=== PATIENT | female | born 1995 | race Caucasian/White ===

== ENCOUNTER 2025-03-21 15:39 | Emergency (ER) | payer BC, SELFPAY ==
[2025-03-21 15:43] VITALS: BP 121/72
[2025-03-21 16:06] LABS: % Basophils 0.2 % (0-2); % Eosinophils 0.7 % (0-6); % Immature Granulocytes 0.4 % (0-0.5); % Lymphocytes 8.2 % (20.5-51.1); % Monocytes 3.8 % (1.7-9.3); % Neutrophils 86.7 % (42.2-75.2); Absolute Eosinophils 0.1 10^3/uL (0-0.7); Absolute Lymphocytes 0.7 10^3/uL (1.2-3.4); Absolute Monocytes 0.3 10^3/uL (0.1-0.6); Absolute Neutrophils 7.2 10^3/uL (1.4-6.5); Hemoglobin 14.2 g/dL (12.0-16.0); Mean Corp Hgb Conc. 35.5 g/dL (33.0-37.0); Mean Corpuscular Volume 84.6 fL (81.0-99.0); Mean Platelet Volume 10.4 fL (7.4-10.4); Nucleated Red Blood Cells % 0 %; Platelet Count 268 10^3/uL (130-400); Red Blood Cell Count 4.73 10^6/uL (4.20-5.40); Red Cell Dist. Width 12.8 % (11.5-14.5); White Blood Cell Count 8.3 10^3/uL (4.8-10.8)
[2025-03-21 16:08] LABS: Urine Albumin Negative (Neg - Trace); Urine Bilirubin Negative (Negative); Urine Character Clear (Clear); Urine Color Yellow; Urine Glucose Negative (Negative); Urine Ketone Negative (Negative); Urine Leukocyte Negative (Negative); Urine Nitrite Negative (Negative); Urine Occult Blood 1+ (Negative); Urine Urobilinogen Negative (Neg - 1+)
[2025-03-21 16:19] LABS: HCG, Serum Qualitative Screen Negative; Urine Bacteria Few (Negative); Urine Red Blood Cell 0-2 /HPF (0-2); Urine Squamous Cell >30 /LPF (Few); Urine White Cell 0-2 /HPF (0-5)
[2025-03-21 16:24] LABS: ALT (SGPT) 29 U/L (0-35); AST (SGOT) 26 U/L (14-36); Albumin 4.6 g/dl (3.5-5.0); Alkaline Phosphatase 47 U/L (38-126); Blood Urea Nitrogen 13 mg/dl (7-17); Calcium 9.5 mg/dl (8.4-10.2); Carbon Dioxide 26 mmol/L (22-30); Chloride 103 mmol/L (98-107); Glucose 112 mg/dl (70-99); Potassium 3.8 mmol/L (3.5-5.1); Sodium 138 mmol/L (135-145); Total Bilirubin 0.9 mg/dl (0.2-1.3); Total Protein 7.5 g/dl (6.3-8.2); eGFR > 60.00
[2025-03-21 16:51] VITALS: BMI 29.6
--- NOTE | 2025-03-21 17:39 | ED.GENMED ---
History of Present Illness
General
Chief Complaint: Back Pain
Source: patient
Exam Limitations: none
Time Seen by Provider: 03/21/25 17:20
History of Present Illness
History of Present Illness:
Patient complaining of bilateral low back pain that started vaguely yesterday afternoon while sitting. No sudden pain no flank pain associated with some nausea. Mild diarrhea. No abdominal pain no fever no urinary symptoms. Only took Tylenol
last evening for this. She is breast-feeding.
Past History
Past History
ED Past Medical History: Other (Frequent UTI)
ED Past Surgical History: (6 months ago)
Review of Systems
Review of Systems
All Other Systems: Not applicable
Constitutional: Denies fever or chills
Respiratory: Denies cough
Cardiac: Reports no symptoms
ABD/GI: Denies abdominal pain
Phy Exam
Physical Exam
Physical Exam:
GENERAL: Alert and oriented in no apparent distress. Initially in a recliner. Seemed mildly uncomfortable with the active sitting up. Clinically appeared musculoskeletal. Able to ambulate.
EYE: Orbits normal.
NECK: Supple
CARDIAC: Regular rate and rhythm without any obvious murmurs.
LUNGS: Clear breath sounds,normal
ABDOMEN: Soft, without focal tenderness or distention. No CVA tenderness
NEUROLOGICAL: Alert and oriented , grossly non-focal. Good lower extremity strength. Patellar reflexes intact. Gait normal
SKIN: Warm and dry, no rash or lesion, no discoloration, skin intact.
MUSCULOSKELETAL: No edema,no deformity.Good color. Decreased flexion at the hip and pain with flexion. No pain with straight leg raising.
PSYCH: Normal and appropriate interaction.
Course
Orders/Labs/Results
Orders:
Orders
03/21/25 15:48
Test Result ONCE
03/21/25 15:58
Complete Blood Count/With Diff Urgent
Comprehensive Metabolic Panel Urgent
HCG, Serum Qualitative Screen Urgent
Urinalysis Reflex To Culture Urgent
Date Specimen was Collected: 03/21/25
Time Specimen was Collected: 15:53
Urine Microscopic Reflex Cult Urgent
03/21/25 17:31
0.9% Sodium Chloride 1000 ml [Nss] 1,000 ml IV BOLUS
Ketorolac [Toradol] 15 mg IV NOW STA
03/21/25 17:34
CT Abd/pel Without Iv Or Oral Urgent
Comment:
Reason For Exam: Back pain nausea vomiting
03/21/25 20:49
Vital Signs- Treatment ONCE
Frequency: Once
Comment: now
Vital Signs As Directed
Frequency: Other
Additional Instructions:: Repeat vital signs now
Abnormal Lab Results
03/21/25
15:58
Absolute Neuts (auto) 7.2 H 10^3/uL
(1.4-6.5)
Absolute Lymphs (auto) 0.7 L 10^3/uL
(1.2-3.4)
Neutrophils % 86.7 H %
(42.2-75.2)
Lymphocytes % 8.2 L %
(20.5-51.1)
Creatinine 0.5 L mg/dL
(0.6-1.0)
Glucose 112 H mg/dl
(70-99)
Ur Occult Blood Reflex 1+ A
(Negative)
Urine Bacteria (Reflex) Few A
(Negative)
03/21/25 15:58
03/21/25 15:58
Vital Signs
Initial and Last Documented VS:
Initial Vital Signs
Temp Pulse Resp BP Pulse Ox
98.4 F 118 16 121/72 98
03/21/25 15:43 03/21/25 15:43 03/21/25 15:43 03/21/25 15:43 03/21/25 15:43
Last Documented Vital Signs
Temp Pulse Resp BP Pulse Ox
98.4 F 102 18 118/73 98
03/21/25 15:43 03/21/25 20:54 03/21/25 20:54 03/21/25 20:54 03/21/25 20:54
MDM/Problems Addressed
Differential Diagnosis Includes:
Patient clinically appears musculoskeletal. Bilateral low back. No acute neurologic symptoms. No abdominal symptoms. No CVA tenderness. Patient had some transient shortness of breath but admitted she was anxious during this episode. Shortness
of breath is resolved. It is not a pleuritic or upper back pain or chest pain. Feel pulmonary emboli is very unlikely. I will get a CT scan to evaluate for kidney stone. Toradol reviewed and appears safe during breast-feeding. Patient's child
is 6 months old.
*Radiology
Radiology exam reviewed: radiology read reviewed (Negative)
*Pulse Oximetry
Patient hypoxic: no
*Critical Care Note
Total Time (30-74mins, 75-104mins- exclusive of procedures): Not Applicable
Update Note
Update Note:
No serious etiology found for patient's symptoms. Clinically very musculoskeletal in nature. Although she is having some diarrhea. May be an underlying viral syndrome. Symptomatic treatment and follow-up
ED Attending Note
-
Portions of this chart may have been created with voice recognition software.� Occasional wrong word or��sound alike� substitutions may have occurred due to the inherent limitations of voice recognition software.
Discharge Plan
Departure
Patient Disposition: Home (Routine Discharge)
Date of Disposition: 03/21/25
Time of Disposition: 21:10
Patient with high blood pressure during this ER visit?: No
Discharge Problem:
Low back pain/diarrhea
Instructions: Low Back Pain (DC), Acute Diarrhea
Prescriptions:
No Action
sennosides-docusate sodium [Senna Plus] 8.6-50 mg Tablet
1 tab PO DAILYPRN PRN (Reason: constipation) Qty: 10 0RF
ibuprofen 600 mg Tablet
600 mg PO Q6HPRN PRN (Reason: cramps) Qty: 30 0RF
acetaminophen 325 mg Tablet
650 mg PO Q4HPRN PRN (Reason: mild pain) Qty: 30 0RF
prenat.vits,rebekah,[id number] Tablet
1 tab PO DAILY Qty: 30 0RF
Referrals:
Bobby Iqbal MD [Family Provider] - Follow up in 2-3 days
Activity Restrictions/Additional Instructions:
Stay well-hydrated
Tylenol or Advil for pain
Get rechecked if symptoms persist progress or if not improved in 1 to 2 days
Interventions
Interventions:
*Risk Screen - Suicide Last Done: 03/21/25 16:47
*General Assessment Last Done: 03/21/25 16:47
*Neglect/Abuse Screening Last Done: 03/21/25 16:47
*ED COVID-19 Vaccine History Last Done: 03/21/25 16:47
ED-Musculoskeletal Assessment Last Done: 03/21/25 16:47
Discharge Date and Time
Print Language: CHINESE
[2025-03-21] MEDS: TORADOL 15 MG IV (17:57)
[2025-03-21] MEDS: NSS 1000 IV (18:16)
[2025-03-21 20:54] VITALS: BP 118/73
[2025-03-21] MEDS: ZOFRAN ODT (ORALLY DISINTEGRATING) 4 MG PO (22:20)
== END 2025-03-21 22:22 | disposition home or self-care (01) ==
LOC: EMR 15:39
PROVIDERS: Emergency Medicine; EMERGENCY PHYSICIAN Emergency Medicine; FAMILY PHYSICIAN Internal Medicine
DX: M54.50 Low back pain, unspecified (principal); R19.7 Diarrhea, unspecified; Z87.440 Personal history of urinary (tract) infections
CPT/HCPCS: 96374; 99284; 74176; 80053; 81003; 81015; 84703; 85025